=== PATIENT | female | born 1995 | race Caucasian/White ===

== ENCOUNTER → 2017-12-29 | Outpatient (CLI) | payer OTHER ==
[~2017-12-29] MED LIST: METHACHOLINE KIT (J7674) INH
== END ==
LOC: M CARPUL 14:42
DX: R06.02 Shortness of breath (principal)

== ENCOUNTER → 2018-07-03 | Outpatient (REF) | payer OTHER | LOC: M SFHCLERA 15:07 | DX: R30.0 Dysuria (principal) ==

== ENCOUNTER 2019-02-05 09:39 | Emergency (ER) | payer OTHER ==
[~2019-02-05] VITALS: Ht 152.4 cm; Wt 72.4 kg
[2019-02-05] MEDS ORDERED: ZOFR4TAB16 PO (09:54)
[2019-02-05] MEDS ORDERED: UNIS25TA5 PO (09:56)
[2019-02-05] MEDS ORDERED: [UNRECOGNIZED DRUG - CODE] PO (09:57)
[2019-02-05] MEDS ORDERED: PROMETHAZINE INJ 25 MG/ML VIAL (J2550) IV ONE (10:00)
[2019-02-05] MEDS ORDERED: NS 1,000 ML IV ONE ×2 (10:00→12:30)
[2019-02-05 10:17] LABS: BASO # 0.1 10^3/uL (0.0-0.2); BASO % 0.6 % (0.0-1.0); EOS # 0.3 10^3/uL (0.0-0.50); HEMATOCRIT 41.4 % (36.0-47.0); HEMOGLOBIN 14.5 g/dl (12.0-15.5); LYMPH # 2.4 10^3/uL (1.5-6.5); LYMPH % 17.7 % (24.0-44.0); MEAN CORPUSCULAR HEMOGLOBIN 30.6 pg (27.0-33.0); MEAN CORPUSCULAR VOLUME 87.3 fl (80.0-96.0); MONO # 1.3 10^3/uL (0.0-0.8); MONO % 9.6 % (0.0-5.0); NEUTROPHILS # 9.3 10^3/uL (1.8-7.7); NEUTROPHILS % 69.8 % (36.0-66.0); PLATELET COUNT, AUTOMATED 312 10^3/uL (150-450); RED BLOOD COUNT 4.74 10^6/uL (4.00-5.40); WHITE BLOOD COUNT 13.3 10^3/uL (4.0-10.0)
[2019-02-05 10:40] LABS: ALBUMIN 4.1 GM/DL (3.2-5.2); ALT/SGPT 20 U/L (12-78); BILIRUBIN,DIRECT 0.2 MG/DL (0.0-0.2); BILIRUBIN,TOTAL 0.6 MG/DL (0.2-1.0); BLOOD UREA NITROGEN 10 MG/DL (7-18); CALCIUM LEVEL 9.6 MG/DL (8.5-10.1); CARBON DIOXIDE LEVEL 22 MEQ/L (21-32); CHLORIDE LEVEL 104 MEQ/L (98-107); CREATININE FOR GFR 0.79 MG/DL (0.55-1.30); GLOMERULAR FILTRATION RATE > 60.0 (>60); GLUCOSE, FASTING 103 MG/DL (70-100); POTASSIUM SERUM 3.3 MEQ/L (3.5-5.1); SODIUM LEVEL 137 MEQ/L (136-145)
[2019-02-05] MEDS ORDERED: POTASSIUM CHLORIDE 10 MEQ SR TABLET PO ONE (11:15)
[2019-02-05 13:25] VITALS: BP 121/75
[2019-02-05] MEDS ORDERED: PROM25SU PR (14:07)
== END 2019-02-05 14:16 | disposition home or self-care (01) ==
LOC: M ED 09:39
DX: O21.1 Hyperemesis gravidarum with metabolic disturbance (principal); Z3A.12 12 weeks gestation of pregnancy; Z79.899 Other long term (current) drug therapy

== ENCOUNTER 2019-04-21 14:55 | Emergency (ER) | payer OTHER ==
[~2019-04-21] VITALS: Ht 162.6 cm; Wt 81.3 kg
[2019-04-21 14:55] VITALS: BP 152/93
[~2019-04-21 14:55] MED LIST changes: -METHACHOLINE KIT (J7674) INH; +PROM25SU PR; +UNIS25TA5 PO; +ZOFR4TAB16 PO; +[UNRECOGNIZED DRUG - CODE] PO
[2019-04-21] MEDS ORDERED: PROM25SU PR (15:15)
== END 2019-04-21 15:34 | disposition home or self-care (01) ==
LOC: M ED 14:55
DX: Z76.0 Encounter for issue of repeat prescription (principal); Z3A.23 23 weeks gestation of pregnancy

== ENCOUNTER 2019-06-23 12:07 | Emergency (ER) | payer MEDICAID, OTHER ==
[~2019-06-23] VITALS: Ht 162.6 cm; Wt 91.2 kg
[2019-06-23 12:08] VITALS: BP 139/99
[2019-06-23] MEDS ORDERED: ALL10TAB29 PO (12:16)
[2019-06-23] MEDS ORDERED: MULTTAB20 PO (12:16)
[2019-06-23] MEDS ORDERED: EFFE150C2 PO (12:16)
[2019-06-23] MEDS ORDERED: ZYRTTAB8 PO (12:16)
[2019-06-23] MEDS ORDERED: ASPI81CH33 PO (12:16)
[2019-06-23] MEDS ORDERED: PROM25SU PR (13:00)
== END 2019-06-23 13:17 | disposition home or self-care (01) ==
LOC: M ED 12:07
DX: Z76.0 Encounter for issue of repeat prescription (principal); Z3A.32 32 weeks gestation of pregnancy; Z79.899 Other long term (current) drug therapy

== ENCOUNTER 2019-07-06 15:22 | Emergency (ER) | payer MEDICAID ==
[~2019-07-06] VITALS: Ht 162.6 cm; Wt 89.4 kg
[2019-07-06 15:22] VITALS: BP 130/88
[~2019-07-06 15:22] MED LIST changes: +ALL10TAB29 PO; +ASPI81CH33 PO; +EFFE150C2 PO; +MULTTAB20 PO; +ZYRTTAB8 PO
[2019-07-06] MEDS ORDERED: PROM25SU PR (16:28)
== END 2019-07-06 16:29 | disposition home or self-care (01) ==
LOC: M ED 15:22
DX: O21.0 Mild hyperemesis gravidarum (principal); J45.909 Unspecified asthma, uncomplicated; O99.513 Diseases of the respiratory system complicating pregnancy, third trimester; Z3A.33 33 weeks gestation of pregnancy; Z79.899 Other long term (current) drug therapy

== ENCOUNTER → 2019-07-25 | Outpatient (REF) | payer OTHER | LOC: M LAB REF 16:51 | PROVIDERS: ATTEND Nurse Practitioner Women's Health | DX: Z34.83 Encounter for supervision of other normal pregnancy, third trimester (principal) ==

== ENCOUNTER 2019-08-15 17:24 | Inpatient (IN) | payer OTHER ==
[2019-08-15] VITALS (27 sets, daily range): BP systolic 117–191; BP diastolic 68–96
[~2019-08-15] VITALS: Ht 162.6 cm; Wt 91.1 kg
[2019-08-15] MEDS ORDERED: LACTATED RINGER'S 1000 ML IV STA (17:51)
[2019-08-15] MEDS ORDERED: LR 1,000 ML IV SCH (17:51)
[2019-08-15 18:54] LABS: HEMATOCRIT 45.3 % (36.0-47.0); HEMOGLOBIN 14.5 g/dl (12.0-15.5); MEAN CORPUSCULAR HEMOGLOBIN 28.2 pg (27.0-33.0); PLATELET COUNT, AUTOMATED 338 10^3/uL (150-450); RED BLOOD COUNT 5.15 10^6/uL (4.00-5.40); WHITE BLOOD COUNT 20.4 10^3/uL (4.0-10.0)
[2019-08-15] MEDS ORDERED: AMPICILLIN SOD 2 GM in D5W MINI-BAG PLUS 100 ML IV ONE (19:00)
[2019-08-15 19:09] LABS: ALT/SGPT 13 U/L (12-78); BILIRUBIN,TOTAL 0.4 MG/DL (0.2-1.0); CREATININE FOR GFR 0.79 MG/DL (0.55-1.30); GLOMERULAR FILTRATION RATE > 60.0 (>60); LDH LACTATE DEHYDROGENASE 224 U/L (84-246); URIC ACID 4.1 MG/DL (2.6-6.0)
[2019-08-15] MEDS ORDERED: FENTANYL 2MCG/ML ROPIVACAINE 0.2% IN 0.9% NACL 100ML IVBAG As Ordered ONE (19:10)
[2019-08-15] MEDS ORDERED: diphenhydrAMINE INJ 50MG/ML VIAL (J1200) IV PRN (21:00)
[2019-08-15] MEDS ORDERED: ONDANSETRON 4MG/2ML VIAL (J2405) IV PRN (21:00)
[2019-08-15] MEDS ORDERED: LACTATED RINGER'S 1000 ML IV PRN (21:00)
[2019-08-15] MEDS ORDERED: EPIDURAL COMMENT XX SCH (21:00)
[2019-08-15] MEDS ORDERED: ePHEDrine SULFATE 25 MG/5 ML(5MG/ML) SYRINGE IV PRN (21:00)
[2019-08-15] MEDS ORDERED: FENTANYL/ROPIVACAINE/NACL BAG 100 ML EPIDURAL SCH (21:00)
[2019-08-15] MEDS ORDERED: NALOXONE INJ 0.4 MG/1 ML VIAL (J2310) IV PRN (21:00)
[2019-08-15] MEDS ORDERED: EPIDURAL/PCA KEYS XX PRN (21:00)
[2019-08-15] MEDS ORDERED: REFRIGERATOR IV KEYS XX PRN (21:00)
[2019-08-15] MEDS ORDERED: OXYTOCIN 30 UNITS IN 0.9% NaCl 500ML IV BAG (J2590) As Ordered ONE (22:08)
[2019-08-15] MEDS ORDERED: AMPICILLIN SOD 1 GM in D5W MINI-BAG PLUS 50 ML IV SCH (23:00)
[2019-08-16] MEDS ORDERED: OXYTOCIN DRIP 30 UNITS in IV 1 EA IV SCH (00:38)
[2019-08-16] MEDS ORDERED: DIBUCAINE 1% OINTMENT 30GM TOP PRN (00:45)
[2019-08-16] MEDS ORDERED: DOCUSATE SODIUM 100 MG CAP PO PRN (00:45)
[2019-08-16] MEDS ORDERED: MEASLES,MUMPS,RUBELLA VACCINE INJ (MMR-II) (90707) SC SCH (00:45)
[2019-08-16] MEDS ORDERED: METHYLERGONOVINE MALEATE 0.2 MG TAB PO PRN (00:45)
[2019-08-16] MEDS ORDERED: ACETAMINOPHEN 500 MG TAB PO PRN (00:45)
[2019-08-16] MEDS ORDERED: ACETAMINOPHEN TAB 650MG DOSE (2X325MG) PO PRN (00:45)
[2019-08-16] MEDS ORDERED: ANUSOL HC CREAM 30GM TOP PRN (00:45)
[2019-08-16] MEDS ORDERED: RHOGAM 300 MCG (1500 IU) INJ (J2790) IM SCH (00:45)
[2019-08-16] MEDS ORDERED: IBUPROFEN 600 MG TAB PO PRN (00:45)
[2019-08-16 01:12] LABS: CORD GAS ABE A -5.5; CORD GAS ABE V -5.6; CORD GAS HCO3 A 21.2 MEQ/L; CORD GAS HCO3 V 20.6 MEQ/L; CORD GAS O2 SAT A 65.2 %; CORD GAS O2 SAT V 55.2 %; CORD GAS PCO2 V 42.7 mmHg; CORD GAS PH A 7.29 UNITS; CORD GAS PH V 7.302 UNITS; CORD GAS PO2 V 26.8 mmHg; CORD GAS SBC A 19.2 MEQ/L; CORD GAS SBC V 18.9 MEQ/L; CORD GAS TCO2 A 22.5 MEQ/L; CORD GAS TCO2 V 21.9 MEQ/L
[2019-08-16 02:24] VITALS: BP 152/86
[2019-08-16] MEDS: IBUPROFEN 800 MG TAB PO PRN (05:10)
[2019-08-16 06:00] VITALS: BP 137/95
[2019-08-16] MEDS: PRENATAL VITAMINS CHEWABLE TABLET PO SCH (07:57)
--- NOTE | 2019-08-16 17:36 | HPE ---
DATE OF ADMISSION: 08/15/2019 Mary is a 23-year-old female, 1, para 0 with an estimated date of confinement (EDC) of 08/18/2019, estimated gestational age (EGA) 39 and 4/7 weeks gestation, who presented to labor and delivery with complaint of contractions every 4-5 minutes. Upon evaluation in labor and delivery, she was found to be in active labor. At this point a decision was made for admission. Her record reviewed, which was essentially unremarkable. LABORATORY: Blood type is O positive, rubella immune, hepatitis negative, HIV negative, GC and chlamydia negative. One hour sugar testing was within normal limits. Her GBS is positive. PAST MEDICAL HISTORY: Significant for: 1. Anxiety. 2. Asthma . 3. Seasonal allergies. PAST SURGICAL HISTORY: Denies. SOCIAL HISTORY: She is . Denies any alcohol, drugs, or cigarette smoking. REVIEW OF SYSTEMS: Unremarkable. MEDICATIONS: vitamins, Effexor 150 mg. ALLERGIES: No known drug allergies. PHYSICAL EXAMINATION: Obese female in no acute distress. Abdomen: Soft, nontender, nondistended. Extremities: No clubbing, cyanosis or edema. Vaginal exam: She is 4-5 cm dilated, 100% effaced with intact membranes. Fetus at -2 station. Tracing reviewed. Category 1 tracing with contractions every 4 minutes. ASSESSMENT: 1. Intrauterine at 39-4/7 weeks gestation in active labor. 2. GBS positive. PLAN: Admit to labor and delivery. Routine labs sent. Pain management discussed. The patient up for an epidural. Ampicillin started for GBS prophylaxis. Will continue to monitor. Anticipate delivery.
[2019-08-16 18:00] VITALS: BP 136/86
--- NOTE | 2019-08-16 18:08 | DN ---
DATE: 08/15/2019 Mary is a 23-year-old female 1, para 0 who was admitted at 39-4/7 weeks gestation in active labor. She progressed to fully dilated after artificial rupture of membranes, delivered a live female in right occiput anterior position with a second-degree midline perineal laceration. scores 9 and 9. Placenta delivered spontaneously intact, three-vessel cord. Perineum, vagina and cervix inspected. A second-degree laceration noted which was repaired using 2-0 Chromic. Estimated blood loss 250 mL. Terminal meconium noted. Both mother and baby in stable condition.
[2019-08-17] MEDS: IBUPROFEN 800 MG TAB PO PRN ×2 (05:41→14:13)
[2019-08-17 06:05] VITALS: BP 142/93
[2019-08-17 07:14] LABS: HEMATOCRIT 33.8 % (36.0-47.0); HEMOGLOBIN 10.8 g/dl (12.0-15.5); MEAN CORPUSCULAR HEMOGLOBIN 29.4 pg (27.0-33.0); MEAN CORPUSCULAR VOLUME 92.1 fl (80.0-96.0); PLATELET COUNT, AUTOMATED 244 10^3/uL (150-450); RED BLOOD COUNT 3.67 10^6/uL (4.00-5.40); WHITE BLOOD COUNT 18.3 10^3/uL (4.0-10.0)
[2019-08-17] MEDS: PRENATAL VITAMINS CHEWABLE TABLET PO SCH (10:47)
== END 2019-08-17 15:40 | disposition home or self-care (01) | DRG 560 ==
LOC: M LDO 17:24 → M LDI 17:51 → M OBS 08-16 02:09
PROVIDERS: ADMIT Obstetrics & Gynecology; ATTEND Obstetrics & Gynecology
PROC: 10E0XZZ Delivery of Products of Conception, External Approach (ICD-10-PCS; principal; 2019-08-15)
PROC: 0KQM0ZZ Repair Perineum Muscle, Open Approach (ICD-10-PCS; 2019-08-15)
PROC: 10907ZC Drainage of Amniotic Fluid, Therapeutic from Products of Conception, Via Natural or Artificial Opening (ICD-10-PCS; 2019-08-15)
DX: O99.824 Streptococcus B carrier state complicating childbirth (principal); O77.0 Labor and delivery complicated by meconium in amniotic fluid; Z37.0 Single live birth; Z3A.39 39 weeks gestation of pregnancy; O70.1 Second degree perineal laceration during delivery

== ENCOUNTER 2020-04-23 13:19 | Emergency (ER) | payer OTHER ==
[~2020-04-23] VITALS: Ht 162.6 cm; Wt 103.6 kg
[~2020-04-23 13:19] MED LIST changes: -ALL10TAB29 PO; +CETI-24 PO
[2020-04-23] MEDS ORDERED: VENL150C43 PO (15:21)
[2020-04-23 15:27] VITALS: BP 147/94
== END 2020-04-23 15:47 | disposition home or self-care (01) ==
LOC: M ED 13:19
DX: Z76.0 Encounter for issue of repeat prescription (principal); F41.9 Anxiety disorder, unspecified; J45.909 Unspecified asthma, uncomplicated; Z79.899 Other long term (current) drug therapy

== ENCOUNTER 2020-05-26 15:44 | Emergency (ER) | payer OTHER ==
[~2020-05-26] VITALS: Ht 162.6 cm; Wt 102.8 kg
[2020-05-26 15:44] VITALS: BP 130/89
[~2020-05-26 15:44] MED LIST changes: +VENL150C43 PO
[2020-05-26] MEDS ORDERED: VENL150C43 PO (15:57)
== END 2020-05-26 16:17 | disposition home or self-care (01) ==
LOC: M ED 15:44
DX: Z76.0 Encounter for issue of repeat prescription (principal); F41.9 Anxiety disorder, unspecified

== ENCOUNTER → 2022-03-10 | Outpatient (REF) | payer OTHER ==
[2022-03-10 12:58] LABS: HEMATOCRIT 37.5 % (36.0-47.0); HEMOGLOBIN 12.6 g/dl (12.0-15.5); MEAN CORPUSCULAR HEMOGLOBIN 30.1 pg (27.0-33.0); MEAN CORPUSCULAR HGB CONC 33.6 g/dl (32.0-36.5); MEAN CORPUSCULAR VOLUME 89.5 fl (80.0-96.0); PLATELET COUNT, AUTOMATED 232 10^3/uL (150-450); RED BLOOD COUNT 4.19 10^6/uL (4.00-5.40)
[2022-03-10 19:47] LABS: HCG, SERUM QUANTITATIVE 101206 MIU/ML
[2022-03-11 01:13] LABS: HEPATITIS C VIRUS ABY INDEX 0.1 INDEX (<0.8)
[2022-03-11 03:04] LABS: HIV 1&2 SCREEN CENTAUR NEGATIVE (NEGATIVE)
== END ==
LOC: M LAB REF 12:40
PROVIDERS: ATTEND Obstetrics & Gynecology
DX: O36.80X0 Pregnancy with inconclusive fetal viability, not applicable or unspecified (principal); Z32.01 Encounter for pregnancy test, result positive

== ENCOUNTER → 2022-08-03 | Outpatient (CLI) | payer OTHER ==
[2022-08-03 12:26] LABS: HEMATOCRIT 38.6 % (36.0-47.0); HEMOGLOBIN 12.8 g/dl (12.0-15.5); MEAN CORPUSCULAR HEMOGLOBIN 31.8 pg (27.0-33.0); MEAN CORPUSCULAR HGB CONC 33.2 g/dl (32.0-36.5); PLATELET COUNT, AUTOMATED 244 10^3/uL (150-450); RED BLOOD COUNT 4.02 10^6/uL (4.00-5.40); WHITE BLOOD COUNT 9.8 10^3/uL (4.0-10.0)
== END ==
LOC: M LAB 10:35
PROVIDERS: ATTEND Obstetrics & Gynecology
DX: Z34.82 Encounter for supervision of other normal pregnancy, second trimester (principal)

== ENCOUNTER → 2022-09-29 | Outpatient (REF) | payer OTHER | LOC: M LAB REF 16:24 | PROVIDERS: ATTEND Obstetrics & Gynecology | DX: Z36.85 Encounter for antenatal screening for Streptococcus B (principal) ==

== ENCOUNTER 2024-03-19 17:53 | Emergency (ER) | payer OTHER ==
[~2024-03-19 17:53] MED LIST changes: -EFFE150C2 PO; +EFFE150C3 PO; +PEPC1TAB5 PO; +PRENTAB9 PO
[2024-03-19 18:34] LABS: HEMATOCRIT 39.7 % (36.0-47.0); HEMOGLOBIN 13.1 g/dl (12.0-15.5); MEAN CORPUSCULAR HEMOGLOBIN 30.9 pg (27.0-33.0); MEAN CORPUSCULAR VOLUME 93.6 fl (80.0-96.0); PLATELET COUNT, AUTOMATED 219 10^3/uL (150-450); RED BLOOD COUNT 4.24 10^6/uL (4.00-5.40); WHITE BLOOD COUNT 7.8 10^3/uL (4.0-10.0)
[2024-03-19 18:50] LABS: AMPHETAMINES LEVEL URINE NEGATIVE (NEGATIVE); BARBITURATES URINE NEGATIVE (NEGATIVE); BENZODIAZEPINES URINE NEGATIVE (NEGATIVE); COCAINE METABOLITE URINE NEGATIVE (NEGATIVE); METHADONE URINE NEGATIVE (NEGATIVE); OPIATES URINE NEGATIVE (NEGATIVE); PHENCYCLIDINE URINE NEGATIVE (NEGATIVE)
[2024-03-19 19:03] LABS: CANNABINOIDS URINE POSITIVE (NEGATIVE)
[2024-03-19 19:11] LABS: ETHYL ALCOHOL (ETHANOL) < 0.003 % (0.000-0.010)
[2024-03-19 19:13] LABS: ALBUMIN 4.4 G/DL (3.2-5.2); ALKALINE PHOSPHATASE 44 U/L (46-116); ALT/SGPT 15 U/L (7.0-40); AST/SGOT < 8 U/L (<34); BILIRUBIN,DIRECT 0.2 MG/DL (<0.4); BILIRUBIN,TOTAL 0.5 MG/DL (0.3-1.2); BLOOD UREA NITROGEN 13 MG/DL (9-23); CALCIUM LEVEL 9.8 MG/DL (8.5-10.1); CARBON DIOXIDE LEVEL 26 MMOL/L (20-31); CHLORIDE LEVEL 109 MMOL/L (98-107); CREATININE FOR GFR 0.78 MG/DL (0.55-1.30); GLOMERULAR FILTRATION RATE > 60.0 (>60); GLUCOSE, FASTING 109 MG/DL (60-100); POTASSIUM SERUM 3.6 MMOL/L (3.5-5.1); SALICYLATE LEVEL < 3.0 MG/DL (<30); SODIUM LEVEL 141 MMOL/L (136-145); TOTAL PROTEIN 7.8 G/DL (5.7-8.2)
[2024-03-19 19:17] LABS: THYROID STIMULATING HORMONE 5.287 uIU/ML (0.55-4.78)
[2024-03-19 19:19] LABS: HCG, SERUM QUALITATIVE NEGATIVE (NEGATIVE)
[2024-03-19 19:27] VITALS: BP 139/78; TEMP 97.5; O2SAT 100
== END 2024-03-19 20:43 | disposition home or self-care (01) ==
LOC: M ED 17:53
DX: F43.0 Acute stress reaction (principal); F41.9 Anxiety disorder, unspecified; Z79.810 Long term (current) use of selective estrogen receptor modulators (SERMs); Z79.899 Other long term (current) drug therapy

== ENCOUNTER 2024-06-21 13:02 | Emergency (ER) | payer OTHER ==
[~2024-06-21] VITALS: Ht 162.6 cm; Wt 62.6 kg
[2024-06-21 20:34] LABS: BASO % 0.4 % (0.0-1.0); HEMATOCRIT 39.7 % (36.0-47.0); HEMOGLOBIN 13.5 g/dl (12.0-15.5); LYMPH # 1.4 10^3/uL (1.5-5.0); LYMPH % 20.2 % (24.0-44.0); MEAN CORPUSCULAR VOLUME 91.3 fl (80.0-96.0); MONO # 0.3 10^3/uL (0.0-0.8); MONO % 4.8 % (2.0-8.0); NEUTROPHILS # 5.3 10^3/uL (1.5-8.5); NEUTROPHILS % 74.3 % (36.0-66.0); PLATELET COUNT, AUTOMATED 244 10^3/uL (150-450); RED BLOOD COUNT 4.35 10^6/uL (4.00-5.40); WHITE BLOOD COUNT 7.1 10^3/uL (4.0-10.0)
[2024-06-21] MEDS: ONDANSETRON 4MG 2ML VIAL IV ONE (20:34)
[2024-06-21] MEDS: FAMOTIDINE 20MG/2ML VIAL IVP ONE (20:34)
[2024-06-21 20:57] LABS: ALBUMIN 4.4 G/DL (3.2-5.2); BILIRUBIN,DIRECT 0.2 MG/DL (<0.4); BILIRUBIN,TOTAL 0.6 MG/DL (0.3-1.2); TOTAL PROTEIN 8.2 G/DL (5.7-8.2)
[2024-06-21 21:38] VITALS: BP 133/87; TEMP 99.5; O2SAT 100
[2024-06-21] MEDS ORDERED: ONDA-282 PO (22:28)
== END 2024-06-21 22:38 | disposition home or self-care (01) ==
LOC: M ED 13:02
DX: K29.00 Acute gastritis without bleeding (principal); I10 Essential (primary) hypertension; J45.909 Unspecified asthma, uncomplicated; Z79.83 Long term (current) use of bisphosphonates; Z79.899 Other long term (current) drug therapy
CPT/HCPCS: 80047; 80076; 81001; 83690; 84702; 85025; 87486; 87581; 87633; 87798; 96374; 99284; J2405; S0028